=== PATIENT | male | born 1970 | race Caucasian/White ===

== ENCOUNTER 2016-04-12 05:33 | Day surgery (SDC) | payer OTHER ==
[~2016-04-12] VITALS: Ht 177.8 cm; Wt 70.0 kg
[2016-04-12 06:06] VITALS: BP 132/90; PULSE 88; TEMP 98.2
[2016-04-12] MEDS ORDERED: OMEGA-3 1000 MG1 CAP PO (06:11)
[2016-04-12] MEDS ORDERED: ADVIL200 MG PO (06:12)
== END 2016-04-12 06:30 | disposition home or self-care (01) ==
LOC: SDCO 05:33
DX: A63.0 Anogenital (venereal) warts (principal); Z53.09 Procedure and treatment not carried out because of other contraindication; K92.1 Melena
CPT/HCPCS: J7120

== ENCOUNTER 2016-04-20 06:33 | Day surgery (SDC) | payer OTHER ==
[2016-04-20] VITALS (9 sets, daily range): BP systolic 129–138; BP diastolic 81–93; PULSE 65–85; TEMP 97.9–98
[~2016-04-20] VITALS: Ht 177.8 cm; Wt 70.5 kg
[~2016-04-20 06:33] MED LIST: ADVIL200 MG PO; OMEGA-3 1000 MG1 CAP PO
[2016-04-20] MEDS ORDERED: CLARITIN 1010 MG/TAB PO (07:35)
== END 2016-04-20 13:20 | disposition home or self-care (01) ==
LOC: SDCO 06:33
DX: K92.1 Melena (principal); A63.0 Anogenital (venereal) warts; K57.30 Diverticulosis of large intestine without perforation or abscess without bleeding
CPT/HCPCS: J1100; J1885; J2405; J2704; J3010; J7120